=== PATIENT | female | born 1960 | race Caucasian/White ===

== ENCOUNTER 2025-04-28 18:54 | Emergency (ER) | payer OTHER ==
[~2025-04-28] VITALS: Wt 56.7 kg
[2025-04-28 19:34] LABS: BASO # 0.1 10*3/uL (0.0-0.1); BASO % 0.6 % (0.0-1.0); EOS # 0.1 10*3/uL (0.0-0.4); EOS % 1.2 % (1.0-4.0); MEAN CELL VOLUME 95.5 fl (81.0-99.0); MEAN CORPUSCULAR HGB 32.4 pg (27.0-31.0); MEAN PLATELET VOLUME 9.4 fl (9.6-12.3); MONO # 0.6 10*3/uL (0.1-1.0); MONO % 6.9 % (3.0-9.0); NEUT # 4.9 10*3/uL (2.3-7.9); NEUT % 54.8 % (47.0-73.0); NUCLEATED RED BLOOD CELL 0.0 % (0.0-0.0); NUCLEATED RED BLOOD CELL 0.0 10*3/uL (0.0-0.0); PLATELET COUNT AUTOMATED 218 10*3/uL (130-400); RED CELL DISTRI WIDTH 13.1 % (0-14.5)
[2025-04-28 19:58] LABS: BUN < 5 mg/dl (9-23)
[2025-04-28] MEDS ORDERED: MG-AL HYDROXIDE/SIMETICONE 30 ML UDC PO STA (21:46)
[2025-04-28] MEDS ORDERED: Dicyclomine Hydrochloride 20 MG/10 ML OSYR PO STA (21:46)
[2025-04-29] MEDS ORDERED: BREYNA 160-4.10.3 GM INH (18:58)
== END 2025-04-28 22:39 | disposition home or self-care (01) ==
LOC: ED 18:54
PROVIDERS: Internal Medicine
DX: K21.9 Gastro-esophageal reflux disease without esophagitis (principal); M54.9 Dorsalgia, unspecified; F10.129 Alcohol abuse with intoxication, unspecified; E87.1 Hypo-osmolality and hyponatremia; J44.9 Chronic obstructive pulmonary disease, unspecified; Y90.9 Presence of alcohol in blood, level not specified

== ENCOUNTER 2025-04-29 11:39 | Observation (INO) | payer OTHER ==
[~2025-04-29] VITALS: Ht 147.3 cm; Wt 56.7 kg
[2025-04-29 11:45] VITALS: BP 124/86
[2025-04-29 12:14] LABS: BASO # 0.0 10*3/uL (0.0-0.1); BASO % 0.5 % (0.0-1.0); EOS # 0.1 10*3/uL (0.0-0.4); EOS % 1.1 % (1.0-4.0); MEAN CELL VOLUME 94.3 fl (81.0-99.0); MEAN CORPUSCULAR HGB 32.5 pg (27.0-31.0); MEAN PLATELET VOLUME 9.7 fl (9.6-12.3); MONO # 0.5 10*3/uL (0.1-1.0); MONO % 9.0 % (3.0-9.0); NEUT # 3.2 10*3/uL (2.3-7.9); NEUT % 59.1 % (47.0-73.0); NUCLEATED RED BLOOD CELL 0.0 % (0.0-0.0); NUCLEATED RED BLOOD CELL 0.0 10*3/uL (0.0-0.0); PLATELET COUNT AUTOMATED 215 10*3/uL (130-400); RED CELL DISTRI WIDTH 12.7 % (0-14.5)
[2025-04-29 12:24] LABS: ACT PARTIAL THROMBO TIME 27.1 SECONDS (20.0-32.1)
[2025-04-29 12:35] LABS: BUN 6 mg/dl (9-23)
[2025-04-29 15:03] LABS: BILIRUBIN Negative (Negative); BLOOD Trace-Lysed (Negative); CLARITY Clear (Clear); COLOR Yellow (Yellow); KETONE 1+ (Negative); LEUKO ESTERASE Negative (Negative); NITRITE Negative (Negative); PH 7.5 (4.5-8.0); SPECIFIC GRAVITY <= 1.005 (1.001-1.030); UROBILINOGEN 0.2 E.U./dl (0.0-1.0)
[2025-04-29 15:28] LABS: BACTERIA TRACE; EPITHELIAL CELLS 16-20; RBC 0-2 rbc/hpf (0-2); WBC 0-2 wbc/hpf (0-5)
[2025-04-29 15:39] VITALS: BP 105/57
[2025-04-29] MEDS ORDERED: Acetaminophen/Hydrocodone 5 MG/325 MG TABLET PO PRN (17:55)
[2025-04-29] MEDS ORDERED: Ondansetron Hydrochloride 4 MG/2 ML VIAL IV PRN (17:55)
[2025-04-29] MEDS ORDERED: ACETAMINOPHEN 325 MG TAB PO PRN (17:55)
[2025-04-29] MEDS ORDERED: BISACODYL 5 MG TAB PO PRN (17:55)
[2025-04-29] MEDS ORDERED: Cyclobenzaprine Hydrochlorid 10 MG TAB PO SCH (18:05)
[2025-04-29] MEDS ORDERED: IOHEXOL 350 MG/ML 100 ML VIAL IV ONE (18:20)
[2025-04-29] MEDS ORDERED: SODIUM CHLORIDE 0.9% 100 ML BAG IV ONE (18:20)
[2025-04-29] MEDS ORDERED: predniSONE 20 MG TAB PO SCH ×2 (18:30→18:31)
[2025-04-29] MEDS ORDERED: BREYNA 160-4.10.3 GM INH (18:58)
[2025-04-29] MEDS ORDERED: Budesonide/Formoterol Fumarate 160/4.5 inhaler INH SCH (19:10)
[2025-04-29] MEDS ORDERED: predniSONE 20 MG TAB PO ONE (19:15)
[2025-04-29] MEDS ORDERED: BUDESONIDE 0.5 MG AMP NEB SCH (19:45)
[2025-04-29 21:06] VITALS: BP 126/71
[2025-04-29 22:56] VITALS: BP 114/59
[2025-04-30 06:53] LABS: BASO # 0.0 10*3/uL (0.0-0.1); BASO % 0.2 % (0.0-1.0); EOS # 0.0 10*3/uL (0.0-0.4); EOS % 0.0 % (1.0-4.0); MEAN CELL VOLUME 96.4 fl (81.0-99.0); MEAN CORPUSCULAR HGB 31.8 pg (27.0-31.0); MEAN PLATELET VOLUME 10.1 fl (9.6-12.3); MONO # 0.3 10*3/uL (0.1-1.0); MONO % 5.7 % (3.0-9.0); NEUT # 3.6 10*3/uL (2.3-7.9); NEUT % 76.8 % (47.0-73.0); NUCLEATED RED BLOOD CELL 0.0 % (0.0-0.0); NUCLEATED RED BLOOD CELL 0.0 10*3/uL (0.0-0.0); PLATELET COUNT AUTOMATED 242 10*3/uL (130-400); RED CELL DISTRI WIDTH 13.2 % (0-14.5)
[2025-04-30 07:19] LABS: BUN 7 mg/dl (9-23); FREE T4 1.27 ng/dl (0.89-1.76); LDL CHOLESTEROL 108 mg/dL (9-159); SGPT/ALT 19 U/L (5-49)
[2025-04-30 08:00] VITALS: BP 117/58
[2025-04-30] MEDS ORDERED: Cyclobenzaprine Hydrochlorid 10 MG TAB PO SCH (10:00)
[2025-04-30 12:00] VITALS: BP 99/60
[2025-04-30] MEDS ORDERED: PREDNISONE50 MG PO (14:36)
[2025-04-30] MEDS ORDERED: CYCLOBENZAPRINE10 MG PO (14:36)
== END 2025-04-30 15:07 | disposition home or self-care (01) ==
LOC: ED 11:39 → 5E 17:04 → EDHOLD 17:04 → 5E 20:56
PROVIDERS: Internal Medicine; ADMIT Internal Medicine; ATTEND Internal Medicine
DX: G45.9 Transient cerebral ischemic attack, unspecified (principal); M54.30 Sciatica, unspecified side; K29.90 Gastroduodenitis, unspecified, without bleeding; E87.1 Hypo-osmolality and hyponatremia; E87.8 Other disorders of electrolyte and fluid balance, not elsewhere classified; R73.9 Hyperglycemia, unspecified; K21.9 Gastro-esophageal reflux disease without esophagitis; J44.9 Chronic obstructive pulmonary disease, unspecified; Z79.899 Other long term (current) drug therapy